=== PATIENT | male | born 2000 | race African-American/Black ===

== ENCOUNTER 2018-01-27 18:44 | Emergency (ER) | payer MEDICAID, OTHER ==
[~2018-01-27] VITALS: Ht 172.7 cm; Wt 80.0 kg
[2018-01-27] MEDS ORDERED: HYDROCODONE/ACETAMINOPHEN 5/325MG TABLET PO ONE (19:30)
[2018-01-27 21:35] LABS: CLARITY URINE CLEAR (CLEAR); COLOR URINE YELLOW (YELLOW); KETONES URINE 2+ (NEGATIVE); LEUKOCYTE ESTERASE URINE NEGATIVE (NEGATIVE); NITRITE URINE NEGATIVE (NEGATIVE); OCCULT BLOOD URINE 2+ (NEGATIVE); PROTEIN URINE 1+ (NEGATIVE); SPECIFIC GRAVITY URINE 1.028 (1.005-1.030)
[2018-01-27 21:46] LABS: *BENZODIAZEPINES SCREEN URINE NEGATIVE (NEGATIVE); *COCAINE SCREEN URINE NEGATIVE (NEGATIVE); METHADONE URINE SCREEN NEGATIVE (NEGATIVE); OPIATES URINE SCREEN NEGATIVE (NEGATIVE); PHENCYCLIDINE URINE SCREEN NEGATIVE (NEGATIVE)
[2018-01-27 21:47] LABS: *AMPHETAMINES SCREEN URINE NEGATIVE (NEGATIVE); *BARBITURATES SCREEN URINE NEGATIVE (NEGATIVE); CANNABINOID URINE SCREEN NEGATIVE (NEGATIVE)
[2018-01-27 22:30] VITALS: BP 111/72
== END 2018-01-27 22:41 | disposition home or self-care (01) ==
LOC: ER 18:44
DX: N50.811 Right testicular pain (principal); N50.82 Scrotal pain; F17.200 Nicotine dependence, unspecified, uncomplicated
CPT/HCPCS: 76870; 80305; 81003; 93976; 99285

== ENCOUNTER 2019-09-29 10:21 | Emergency (ER) | payer OTHER, MEDICAID ==
[~2019-09-29] VITALS: Ht 162.6 cm; Wt 77.0 kg
[2019-09-29] MEDS ORDERED: SODIUM CHLORIDE 0.9% 1,000 ML IV ONE (18:51)
[2019-09-29] MEDS ORDERED: FAMOTIDINE 20MG/2ML VIAL IV STA (18:51)
[2019-09-29] MEDS ORDERED: ONDANSETRON HCL 4MG/2ML INJ IV STA (18:51)
[2019-09-29 19:07] LABS: CLARITY URINE CLEAR (CLEAR); COLOR URINE YELLOW (YELLOW); KETONES URINE 1+ (NEGATIVE); LEUKOCYTE ESTERASE URINE NEGATIVE (NEGATIVE); NITRITE URINE NEGATIVE (NEGATIVE); OCCULT BLOOD URINE 2+ (NEGATIVE); PH URINE 6.5 (4.5-8.0); PROTEIN URINE NEGATIVE (NEGATIVE); SPECIFIC GRAVITY URINE 1.017 (1.005-1.030); UROBILINOGEN URINE 0.2 E.U./dL (0.2-1.0)
[2019-09-29 19:27] LABS: BASOPHILS % 0.3 % (0.0-2.0); EOSINOPHILS % 0.6 % (0.0-5.0); HEMATOCRIT. 44.6 % (42.0-52.0); HEMOGLOBIN. 14.9 g/dL (14.0-18.0); LYMPHOCYTES % 22.4 % (20.0-50.0); MEAN CORPUSCULAR HEMOGLOBIN 27.7 pg (28.0-32.0); MEAN CORPUSCULAR VOLUME 83.2 fL (80.0-94.0); MEAN PLATELET VOLUME 7.1 fl (7.4-10.4); MONOCYTES % 4.6 % (2.0-8.0); NEUTROPHILS % 72.1 % (40.0-76.0); PLATELET 219 x1000/uL (130-400); RED BLOOD CELL COUNT 5.37 mill/uL (4.7-6.1); RED CELL DISTRIBUTION WIDTH 12.4 % (11.6-14.6)
[2019-09-29 19:35] LABS: CHLORIDE 104 mEq/L (98-107); INR 1.1; PROTHROMBIN TIME 11.8 sec (9.6-11.0)
[2019-09-29 23:06] VITALS: BP 120/89
== END 2019-09-29 23:07 | disposition home or self-care (01) ==
LOC: ER 10:30
DX: K29.70 Gastritis, unspecified, without bleeding (principal); R31.29 Other microscopic hematuria; F12.10 Cannabis abuse, uncomplicated
CPT/HCPCS: 36415; 74176; 80053; 81003; 83690; 85025; 85610; 96361; 96374; 96375; 99284; J2405; J3490; J7030

== ENCOUNTER 2022-04-25 11:00 | Emergency (ER) | payer MEDICAID, OTHER ==
[~2022-04-25] VITALS: Ht 165.1 cm; Wt 109.0 kg
[2022-04-25 11:11] VITALS: BP 138/78
[2022-04-25] MEDS ORDERED: PANTOPRAZOLE SODIUM 40 MG/VIAL IV STA (12:20)
[2022-04-25] MEDS ORDERED: ONDANSETRON HCL 4MG/2ML INJ IV STA (12:20)
[2022-04-25] MEDS ORDERED: MAGNESIUM/ALUMINUM HYDROXIDE/SIMETHICONE 30ML UDC PO STA (12:20)
[2022-04-25] MEDS ORDERED: VISCOUS LIDOCAINE 2% 15 ML UDC PO STA (12:20)
[2022-04-25] MEDS ORDERED: SODIUM CHLORIDE 0.9% 1,000 ML IV ONE (12:30)
[2022-04-25 12:57] LABS: BASOPHILS % 0.3 % (0.0-2.0); EOSINOPHILS % 0.4 % (0.0-5.0); HEMATOCRIT. 42.2 % (42.0-52.0); HEMOGLOBIN. 13.9 g/dL (14.0-18.0); MEAN CORPUSCULAR HEMOGLOBIN 27.5 pg (28.0-32.0); MEAN CORPUSCULAR VOLUME 83.8 fL (80.0-94.0); MEAN PLATELET VOLUME 7.3 fl (7.4-10.4); MONOCYTES % 9.4 % (2.0-8.0); NEUTROPHILS % 72.9 % (40.0-76.0); PLATELET 223 x1000/uL (130-400); RED BLOOD CELL COUNT 5.04 mill/uL (4.7-6.1); RED CELL DISTRIBUTION WIDTH 12.7 % (11.6-14.6)
[2022-04-25 13:04] LABS: CHLORIDE 102 mEq/L (98-107)
[2022-04-25 13:11] LABS: ETHANOL BLOOD < 10 mg/dL
[2022-04-25] MEDS ORDERED: TAMSULOSIN HCL 0.4MG SR CAPSULE PO SCH (14:30)
[2022-04-25 15:38] LABS: CLARITY URINE CLEAR (CLEAR); COLOR URINE YELLOW (YELLOW); KETONES URINE 2+ (NEGATIVE); LEUKOCYTE ESTERASE URINE NEGATIVE (NEGATIVE); NITRITE URINE NEGATIVE (NEGATIVE); OCCULT BLOOD URINE NEGATIVE (NEGATIVE); PROTEIN URINE NEGATIVE (NEGATIVE); SPECIFIC GRAVITY URINE 1.014 (1.005-1.030); UROBILINOGEN URINE 0.2 E.U./dL (0.2-1.0)
[2022-04-25] MEDS ORDERED: CEPH500C2 MT (16:04)
[2022-04-25] MEDS ORDERED: ACET-2708 MT (16:04)
[2022-04-25] MEDS ORDERED: TAMS-11 MT (16:04)
[2022-04-25] MEDS ORDERED: ONDA4TAB50 MT (16:04)
[2022-04-25 16:15] LABS: *AMPHETAMINES SCREEN URINE NEGATIVE (NEGATIVE); *BARBITURATES SCREEN URINE NEGATIVE (NEGATIVE); *BENZODIAZEPINES SCREEN URINE NEGATIVE (NEGATIVE); *COCAINE SCREEN URINE NEGATIVE (NEGATIVE); CANNABINOID URINE SCREEN PRESUMTIVE POSITIVE (NEGATIVE); METHADONE URINE SCREEN NEGATIVE (NEGATIVE); OPIATES URINE SCREEN NEGATIVE (NEGATIVE); PHENCYCLIDINE URINE SCREEN NEGATIVE (NEGATIVE)
== END 2022-04-25 16:23 | disposition home or self-care (01) ==
LOC: ER 11:00
DX: N13.2 Hydronephrosis with renal and ureteral calculous obstruction (principal); F12.10 Cannabis abuse, uncomplicated; I10 Essential (primary) hypertension; Z87.19 Personal history of other diseases of the digestive system
CPT/HCPCS: 36415; 74176; 80053; 80305; 80320; 81003; 83690; 85025; 96361; 96374; 96375; 99284; C9113; J2405; J7030; Z7610; G0480

== ENCOUNTER 2024-07-09 08:22 | Emergency (ER) | payer MEDICAID ==
[~2024-07-09] VITALS: Ht 167.6 cm; Wt 74.0 kg
[~2024-07-09 08:22] MED LIST: ACET-2708 MT; CEPH500C2 MT; ONDA4TAB50 MT; TAMS-11 MT
[2024-07-09 08:29] VITALS: O2SAT 100
[2024-07-09] MEDS ORDERED: ONDA-239 PO (09:31)
[2024-07-09] MEDS ORDERED: DICY20TA2 MT (09:31)
[2024-07-09 09:38] VITALS: BP 136/74; PULSE 84; RESP 18; TEMP 38.00304; O2SAT 100
[2024-07-09] MEDS: ACETAMINOPHEN 325MG TABLET PO ONE (09:45)
== END 2024-07-09 09:48 | disposition home or self-care (01) ==
LOC: ER 08:22
DX: R19.7 Diarrhea, unspecified (principal); Z79.899 Other long term (current) drug therapy
CPT/HCPCS: 99283